=== PATIENT | female | born 1990 | race African-American/Black ===

== ENCOUNTER 2017-01-03 13:07 | Inpatient (IN) | payer BC ==
[2017-01-03 14:01] VITALS: BMI 27.7
--- NOTE | 2017-01-03 14:58 | HP ---
COWS - Scale Resting Pulse: 0= [place] 80 or Below Sweatin=Flushed/Facial Moisture Restless Observation: 1= Difficult to Sit Still Pupil Size: 0= Normal to Room Light Bone or Joint Aches: 2= Severe Diffuse Aches Runny Nose/ Eye Tearin= Runny Nose/Eyes GI Upset > 30mins: 2= Nausea/Diarrhea Tremor Observation: 2= Slight Tremor Visible Yawning Observation: 2= >3x During Session Anxiety or Irritability: 2=Irritable/Anxious Goose Flesh Skin: 3=Piloerection COWS Score: 18 Admission ROS S - HPI Chief Complaint: I am here to detox. Allergies/Adverse Reactions: Allergies Allergy/AdvReac Type Severity Reaction Status Date / Time No Known Allergies Allergy Verified 01/03/17 14:46 History of Present Illness: pt is a 26yr old female with a history of heroin dependence seeking detox for treatment. Exam Limitations: No Limitations - Ebola screening Have you traveled outside of the country in the last 21 days: No Have you had contact with anyone from an Ebola affected area: No Have you been sick,other than usual withdrawal symptoms: No - Review of Systems Constitutional: Chills, Diaphoresis, Night Sweats, Changes in sleep EENT: reports: Tearing Respiratory: reports: No Symptoms reported Cardiac: reports: No Symptoms Reported GI: reports: Poor Appetite, Poor Fluid Intake : reports: No Symptoms Reported, Other (yeast infection) Musculoskeletal: reports: Back Pain Integumentary: reports: Flushing, Sweating Neuro: reports: Headache, Tingling, Tremors Endocrine: reports: Excessive Sweating, Flushing, Intolerance to Cold, Intolerance to Heat Hematology: reports: No Symptoms Reported Psychiatric: reports: Judgement Intact, Mood/Affect Appropiate, Orientated x3, Agitated, Anxious Other Systems: Reviewed and Negative Patient History - Patient Medical History Hx Anemia: No Hx Asthma: No Hx Chronic Obstructive Pulmonary Disease (COPD): No Hx Cancer: No Hx Cardiac Disorders: No Hx Congestive Heart Failure: No Hx Hypertension: No Hx Hypercholesterolemia: No Hx Pacemaker: No HX Cerebrovascular Accident: No Hx Seizures: No Hx Dementia: No Hx Diabetes: No Hx Gastrointestinal Disorders: No Hx Liver Disease: No Hx Genitourinary Disorders: No Hx Sexually Transmitted Disorders: No Hx Renal Disease (ESRD): No Hx Thyroid Disease: No Hx Human Immunodeficiency Virus (HIV): No (negative) Hx Hepatitis C: No (negative) Hx Depression: Yes Hx Suicide Attempt: No Hx Bipolar Disorder: No Hx Schizophrenia: No - Patient Surgical History Past Surgical History: Yes Other Surgical History: TERMINATION OF - PPD History Previous Implant?: Yes Documented Results: Negative w/o proof PPD to be Administered?: Yes - Reproductive History Patient is a Female of Child Bearing Age (11 -55 yrs old): Yes Last Menstrual Period: 12/25/16 Patient : No - Smoking Cessation Smoking history: Current every day smoker Aproximately how many cigarettes per day: 10 Hx Chewing Tobacco Use: No Initiated information on smoking cessation: Yes 'Breaking Loose' booklet given: 01/03/17 - Substance & Tx. History Hx Substance Use: Yes Substance Use Type: Heroin Hx Substance Use Treatment: Yes - Substances Abused Heroin Route: Inhalation Frequency: Daily Amount used: 4-5 bags Age of first use: 19 Date of Last Use: 01/02/17 Family Disease History - Family Disease History Family Disease History: Diabetes: Father (HTN,ALCOHOLIC), Heart Disease: Father , Other: Father, Mother (ALCOHOLIC) Admission Physical Exam S - Vital Signs Vital Signs: Vital Signs - 24 hr 01/03/17 13:56 Temperature 97 F L Pulse Rate 79 Respiratory 20 Rate Blood Pressure 115/72 - Physical General Appearance: Yes: Appropriately Dressed, Moderate Distress, Tremorous, Irritable, Sweating, Anxious HEENTM: Yes: Normal Voice, Nasal Congestion, Rhinorrhea Respiratory: Yes: Lungs Clear, Normal Breath Sounds, No Respiratory Distress Neck: Yes: No masses,lesions,Nodules Breast: Yes: Within Normal Limits Cardiology: Yes: Regular Rhythm, Regular Rate, S1, S2 Abdominal: Yes: Normal Bowel Sounds, Non Tender, Soft Genitourinary: Yes: Within Normal Limits Back: Yes: Normal Inspection Musculoskeletal: Yes: full range of Motion, Back pain Extremities: Yes: Normal Capillary Refill, Normal Inspection, Non-Tender, Tremors Neurological: Yes: Fully Oriented, Alert, Normal Response Integumentary: Yes: Normal Color, Diaphoresis Lymphatic: Yes: Within Normal Limits - Diagnostic (1) Depression Current Visit: No Status: Acute (2) Nicotine dependence Current Visit: Yes Status: Chronic Qualifiers: Nicotine product type: cigarettes Substance use status: uncomplicated Qualified Code(s): F17.210 - Nicotine dependence, cigarettes, uncomplicated (3) Opioid dependence with withdrawal Current Visit: Yes Status: Chronic (4) Cocaine dependence without complication Current Visit: Yes Status: Chronic Cleared for Admission [facility] - Detox or Rehab [facility] Level of Care: Medically Managed Detox Regimen/Protocol: Methadone [facility] Breath Alcohol Content Breath Alcohol Content: 0 Urine Pregancy Test - Result Urine Test Results: Negative- NO Line Present Urine Drug Screen - Results Drug Screen Negative: No Urine Drug Screen Results: TRISTON-Cocaine, OPI-Opiates, MTD-Methadone
[2017-01-03] MEDS ORDERED: MAG HYDROX/AL HYDROX/SIMETH 30 ML UNIT-DOSE CUP PO PRN (15:09)
[2017-01-03] MEDS ORDERED: ACETAMINOPHEN 325 MG TABLET (FP) PO PRN (15:09)
[2017-01-03] MEDS ORDERED: MAGNESIUM HYDROX 2400MG/30ML ORAL SUSPENSION 30 ML CUP PO PRN (15:09)
[2017-01-03] MEDS ORDERED: MAGNESIUM CITRATE 300 ML BOTTLE PO PRN (15:09)
[2017-01-03] MEDS ORDERED: MENTHOL/PHENOL 1 EACH UD MM PRN (15:09)
[2017-01-03] MEDS ORDERED: LOPERAMIDE HCL 2 MG CAPSULE PO PRN (15:09)
[2017-01-03] MEDS ORDERED: guaiFENesin/D-METHORPHAN HB 10 ML UNIT-DOSE CUPS PO PRN (15:09)
[2017-01-03] MEDS ORDERED: P-EPHED 60MG/TRIPROLIDI 2.5MG TABLET PO PRN (15:09)
[2017-01-03] MEDS ORDERED: IBUPROFEN 400 MG TABLET (FP) PO PRN (15:09)
[2017-01-03] MEDS ORDERED: NICOTINE POLACRILEX 4 MG GUM BC PRN (15:09)
[2017-01-03] MEDS ORDERED: diphenhydrAMINE HCL 50 MG CAPSULE PO PRN (15:09)
[2017-01-03] MEDS ORDERED: hydrOXYzine PAMOATE 50 MG CAPSULE (FP) PO PRN (15:09)
[2017-01-03] MEDS ORDERED: FLUCONAZOLE 50 MG TABLET PO ONE ×2 (15:40→17:30)
[2017-01-03] MEDS ORDERED: METHADONE HCL 10 MG TABLET (FOR DETOX USE ONLY) PO ONE ×2 (15:40→23:00)
[2017-01-03] MEDS ORDERED: chlordiazePOXIDE HCL 25 MG CAPSULE ONE (17:00)
--- NOTE | 2017-01-03 17:13 | CONSULT ---
[facility] Psychiatric Consult - Data Date of interview: 01/03/17 Admission source: [facility] Identifying data: Readmission to [facility] for this 26 y/o AA female seeking detox treatment,on ,for heroin and cocaine dependence.Patient is single without children,homeless,unemployed and reportedly deprived of any source of income. Substance Abuse History: - Smoking Cessation. Smoking history: Current every day smoker. Aproximately how many cigarettes per day: 10. Hx Chewing Tobacco Use: No. Initiated information on smoking cessation: Yes. 'Breaking Loose' booklet given: 01/03/17. - Substance & Tx. History. Hx Substance Use: Yes. Substance Use Type: Heroin. Hx Substance Use Treatment: Yes. - Substances Abused. Heroin. Route: Inhalation. Frequency: Daily. Amount used: 4-5 bags. Age of first use: 19. Date of Last Use: 01/02/17. Confirmed by patient. Medical History: No reported medical problems.Good general health. Psychiatric History: Patient admits to one psychiatric hospitalization at [facility] in [facility].Ms Haque behaves heself as a hostile, irritable and unconcerned historian." I dont know,I forgot " is her answer to questions pertinent to current diagnosis,medications or OPD care.No history of suicide attempt reported.Patient states that she last took psychotropic medications " a long time ago." Not interested in any medications other than " a sleeping pill " to address her chronic insomnia.No contact with psychiatrists. Physical/Sexual Abuse/Trauma History: Not discussed. Additional Comment: Urine Drug Screen Results: TRISTON-Cocaine, OPI-Opiates, MTD- Methadone.Noted. Mental Status Exam - Mental Status Exam Alert and Oriented to: Time, Place, Person Cognitive Function: Good Patient Appearance: Well Groomed Mood: Withdrawn, Irritable Affect: Mood Congruent Patient Behavior: Fatigued, Guarded, Cooperative (marginally cooperative) Speech Pattern: Clear Voice Loudness: Normal Thought Process: Goal Oriented Thought Disorder: Not Present Hallucinations: Denies Suicidal Ideation: Denies Homicidal Ideation: Denies Insight/Judgement: Poor Sleep: Poorly, Difficulty falling asleep Appetite: Good Muscle strength/Tone: Normal Gait/Station: Normal Psychiatric Findings - Problem List ([place] 1, 2,3) (1) Cocaine dependence without complication Current Visit: Yes Status: Acute (2) Opioid dependence with withdrawal Current Visit: Yes Status: Acute (3) Nicotine dependence Current Visit: Yes Status: Acute Qualifiers: Nicotine product type: cigarettes Substance use status: uncomplicated Qualified Code(s): F17.210 - Nicotine dependence, cigarettes, uncomplicated (4) Substance induced mood disorder Current Visit: Yes Status: Acute (5) Insomnia Current Visit: Yes Status: Acute - Initial Treatment Plan Initial Treatment Plan: Psychoeducation offered : patient is not receptive at this time.Detoxification initiated.Ambien 5 mg po hs for insomnia.Patient made aware of potential for parasomnias.Agrees with careplan.Observation.
[2017-01-03] MEDS: diazePAM 5 MG TABLET PO PRN ×2 (17:31→22:08)
[2017-01-03 19:13] LABS: URINE APPEARANCE CLEAR; URINE BILIRUBIN NEGATIVE (NEGATIVE); URINE BLOOD NEGATIVE (NEGATIVE); URINE COLOR YELLOW; URINE GLUCOSE (UA) NEGATIVE (NEGATIVE); URINE KETONE TRACE (NEGATIVE); URINE NITRITE NEGATIVE (NEGATIVE); URINE PROTEIN NEGATIVE (NEGATIVE); URINE UROBILINOGEN NEGATIVE E.U./dl (0.2-1.0)
[2017-01-03 19:15] LABS: URINE LEUK ESTERASE TRACE (NEGATIVE)
[2017-01-03 19:16] LABS: URINE BACTERIA RARE /hpf (NONE SEEN); URINE HYALINE CAST 2 /lpf; URINE MUCUS MANY; URINE RBC 2 /hpf (0-3); URINE WBC 5 /hpf (3-5)
[2017-01-03] MEDS ORDERED: ZOLPIDEM TARTRATE 5 MG TABLET PO PRN (22:00)
[2017-01-03] MEDS: THIAMINE HCL 100 MG TABLET (FP) PO SCH (22:06)
[2017-01-04] MEDS ORDERED: METHADONE HCL 10 MG TABLET (FOR DETOX USE ONLY) PO ONE (10:00)
[2017-01-04 10:08] LABS: MCH 25.5 pg (25.7-33.7); MCHC 33.1 g/dl (32.0-36.0); MEAN CELL VOLUME 77.2 fl (80-96); PLATELET COUNT 216 K/MM3 (134-434); WHITE BLOOD COUNT 7.7 K/mm3 (4.0-10.0)
[2017-01-04] MEDS: PRENATAL VITAMINS W/ FOLIC ACID TABLET (FP) PO SCH (10:24)
[2017-01-04 11:03] LABS: ALK PHOS 71 U/L (45-117); ANION GAP 8 (8-16); BILIRUBIN,TOTAL 0.5 mg/dL (0.2-1.0); CALCIUM 8.9 mg/dL (8.5-10.1); CO2 27 mmol/L (21-32); COCKROFT - GAULT 94.605; CREATININE 0.9 mg/dL (0.55-1.02); GLUCOSE,RANDOM 124 mg/dL (74-106); SGOT/AST 13 U/L (15-37); SGPT/ALT 16 U/L (12-78); TOT PROT 7.2 g/dl (6.4-8.2)
[2017-01-04] MEDS ORDERED: ONDANSETRON *ODT* 4 MG TABLET SL ONE ×2 (11:25→14:00)
--- NOTE | 2017-01-04 11:25 | PN ---
BHS COWS - Scale Resting Pulse: 0= [place] 80 or Below Sweatin=Flushed/Facial Moisture Restless Observation: 1= Difficult to Sit Still Pupil Size: 1= Pupils >than Normal Bone or Joint Aches: 2= Severe Diffuse Aches Runny Nose/ Eye Tearin= Nasal Congestion GI Upset > 30mins: 2= Nausea/Diarrhea Tremor Observation of Outstretched Hands: 1= Tremor [place], Not Seen Yawning Observation: 0= None Anxiety or Irritability: 2=Irritable/Anxious Goose Flesh Skin: 0=Smooth Skin COWS Score: 12 BHS Progress Note (SOAP) Subjective: interrrupted sleep, [place] Objective: 01/04/17 11:23 Vital Signs Temperature 98.1 F 01/04/17 09:38 Pulse Rate 71 01/04/17 09:38 Respiratory Rate 16 01/04/17 09:38 Blood Pressure 119/88 01/04/17 09:38 O2 Sat by Pulse Oximetry (%) Vital Signs Temperature 98.1 F 01/04/17 09:38 Pulse Rate 71 01/04/17 09:38 Respiratory Rate 16 01/04/17 09:38 Blood Pressure 119/88 01/04/17 09:38 O2 Sat by Pulse Oximetry (%) Laboratory Tests 01/03/17 01/04/17 01/04/17 17:30 06:00 06:00 WBC 7.7 RBC 4.62 Hgb 11.8 Hct 35.6 MCV 77.2 L MCHC 33.1 RDW 16.0 H Plt Count 216 D MPV 10.0 D Sodium 141 Potassium 4.2 Chloride 106 Carbon Dioxide 27 Anion Gap 8 BUN 12 D Creatinine 0.9 Creat Clearance w eGFR > 60 Random Glucose 124 H D Calcium 8.9 Total Bilirubin 0.5 D AST 13 L D ALT 16 Alkaline Phosphatase 71 Total Protein 7.2 Albumin 4.0 D Urine Color Yellow Urine Appearance Clear Urine pH 5.0 Ur Specific [place] > 1.030 Urine Protein Negative Urine Glucose (UA) Negative Urine Ketones Trace H Urine Blood Negative Urine Nitrite Negative Urine Bilirubin Negative Urine Urobilinogen Negative Ur Leukocyte Esterase Trace H Urine RBC 2 Urine WBC 5 Ur Epithelial Cells Moderate Urine Bacteria Rare Hyaline Casts 2 Urine Mucus Many pt aox3 lying in bed in nad 01/04/17 11:25 Assessment: 01/04/17 11:24 withdrawal sx;s Plan: cont. detox increase fluids zofran prn
[2017-01-04] MEDS: diazePAM 5 MG TABLET PO PRN ×2 (14:48→22:08)
--- NOTE | 2017-01-04 17:38 | EKG ---
Test Reason : Blood Pressure : / mmHG Vent. Rate : 073 BPM Atrial Rate : 073 BPM P-R Int : 172 ms QRS Dur : 076 ms QT Int : 382 ms P-R-T Axes : 027 087 -14 degrees QTc Int : 420 ms NORMAL SINUS RHYTHM NONSPECIFIC T WAVE ABNORMALITY ABNORMAL ECG NO PREVIOUS ECGS AVAILABLE Confirmed by BRYSON GARDNER, NANETTE ([id number]) on 01/04/2017 5:37:59 PM Referred By: Confirmed By:NANETTE MASSEY MD
[2017-01-04] MEDS: THIAMINE HCL 100 MG TABLET (FP) PO SCH (22:06)
[2017-01-05] MEDS ORDERED: METHADONE HCL 5 MG TABLET (FOR DETOX USE ONLY) PO ONE (10:00)
--- NOTE | 2017-01-05 11:10 | PN ---
BHS COWS - Scale Resting Pulse: 1= [place] 81-100 Sweatin=Flushed/Facial Moisture Restless Observation: 1= Difficult to Sit Still Pupil Size: 0= Normal to Room Light Bone or Joint Aches: 2= Severe Diffuse Aches Runny Nose/ Eye Tearin= Runny Nose/Eyes GI Upset > 30mins: 0= None Tremor Observation of Outstretched Hands: 2= Slight Tremor Visible Yawning Observation: 2= >3x During Session Anxiety or Irritability: 0= None Goose Flesh Skin: 0=Smooth Skin COWS Score: 12 S Progress Note (SOAP) Subjective: sleepy sweats chills interrupted sleep Objective: 01/05/17 11:38 Vital Signs Temperature 97.5 F L 01/05/17 10:00 Pulse Rate 72 01/05/17 10:00 Respiratory Rate 20 01/05/17 10:00 Blood Pressure 152/92 01/05/17 10:00 O2 Sat by Pulse Oximetry (%) Laboratory Tests 01/03/17 01/04/17 01/04/17 17:30 06:00 06:00 WBC 7.7 RBC 4.62 Hgb 11.8 Hct 35.6 MCV 77.2 L MCHC 33.1 RDW 16.0 H Plt Count 216 D MPV 10.0 D Sodium 141 Potassium 4.2 Chloride 106 Carbon Dioxide 27 Anion Gap 8 BUN 12 D Creatinine 0.9 Creat Clearance w eGFR > 60 Random Glucose 124 H D Calcium 8.9 Total Bilirubin 0.5 D AST 13 L D ALT 16 Alkaline Phosphatase 71 Total Protein 7.2 Albumin 4.0 D Urine Color Yellow Urine Appearance Clear Urine pH 5.0 Ur Specific [place] > 1.030 Urine Protein Negative Urine Glucose (UA) Negative Urine Ketones Trace H Urine Blood Negative Urine Nitrite Negative Urine Bilirubin Negative Urine Urobilinogen Negative Ur Leukocyte Esterase Trace H Urine RBC 2 Urine WBC 5 Ur Epithelial Cells Moderate Urine Bacteria Rare Hyaline Casts 2 Urine Mucus Many RPR Titer 01/04/17 06:00 WBC RBC Hgb Hct MCV MCHC RDW Plt Count MPV Sodium Potassium Chloride Carbon Dioxide Anion Gap BUN Creatinine Creat Clearance w eGFR Random Glucose Calcium Total Bilirubin AST ALT Alkaline Phosphatase Total Protein Albumin Urine Color Urine Appearance Urine pH Ur Specific [place] Urine Protein Urine Glucose (UA) Urine Ketones Urine Blood Urine Nitrite Urine Bilirubin Urine Urobilinogen Ur Leukocyte Esterase Urine RBC Urine WBC Ur Epithelial Cells Urine Bacteria Hyaline Casts Urine Mucus RPR Titer Nonreactive awake/alert ambulating no acute distress Assessment: 01/05/17 11:38 withdrawal sx Plan: continue detox increase fluids
[2017-01-05] MEDS: diazePAM 5 MG TABLET PO PRN ×3 (11:20→22:16)
[2017-01-05] MEDS: PRENATAL VITAMINS W/ FOLIC ACID TABLET (FP) PO SCH (11:20)
[2017-01-05] MEDS: THIAMINE HCL 100 MG TABLET (FP) PO SCH (22:10)
[2017-01-05 22:26] VITALS: TEMP 97.9
[2017-01-06] MEDS: diazePAM 5 MG TABLET PO PRN ×2 (03:25→10:30)
[2017-01-06] MEDS ORDERED: METHADONE HCL 5 MG TABLET (FOR DETOX USE ONLY) PO ONE (10:00)
[2017-01-06] MEDS: PRENATAL VITAMINS W/ FOLIC ACID TABLET (FP) PO SCH (10:30)
--- NOTE | 2017-01-06 14:07 | PN ---
BHS Progress Note (SOAP) Subjective: Sleep interruption, anxiety sweats and shakes Objective: 01/06/17 14:06 Vital Signs 01/06/17 10:51 Temperature 97.9 F Pulse Rate 74 Respiratory 16 Rate Blood Pressure 117/76 Laboratory Last Values WBC 7.7 K/mm3 (4.0-10.0) 01/04/17 06:00 RBC 4.62 M/mm3 (3.60-5.2) 01/04/17 06:00 Hgb 11.8 GM/dL (10.7-15.3) 01/04/17 06:00 Hct 35.6 % (32.4-45.2) 01/04/17 06:00 MCV 77.2 fl (80-96) L 01/04/17 06:00 MCHC 33.1 g/dl (32.0-36.0) 01/04/17 06:00 RDW 16.0 % (11.6-15.6) H 01/04/17 06:00 Plt Count 216 K/MM3 (134-434) D 01/04/17 06:00 MPV 10.0 fl (7.5-11.1) D 01/04/17 06:00 Sodium 141 mmol/L (136-145) 01/04/17 06:00 Potassium 4.2 mmol/L (3.5-5.1) 01/04/17 06:00 Chloride 106 mmol/L (98-107) 01/04/17 06:00 Carbon Dioxide 27 mmol/L (21-32) 01/04/17 06:00 Anion Gap 8 (8-16) 01/04/17 06:00 BUN 12 mg/dL (7-18) D 01/04/17 06:00 Creatinine 0.9 mg/dL (0.55-1.02) 01/04/17 06:00 Creat Clearance w eGFR > 60 (>60) 01/04/17 06:00 Random Glucose 124 mg/dL (74-106) H D 01/04/17 06:00 Calcium 8.9 mg/dL (8.5-10.1) 01/04/17 06:00 Total Bilirubin 0.5 mg/dL (0.2-1.0) D 01/04/17 06:00 AST 13 U/L (15-37) L D 01/04/17 06:00 ALT 16 U/L (12-78) 01/04/17 06:00 Alkaline Phosphatase 71 U/L (45-117) 01/04/17 06:00 Total Protein 7.2 g/dl (6.4-8.2) 01/04/17 06:00 Albumin 4.0 g/dl (3.4-5.0) D 01/04/17 06:00 Urine Color Yellow 01/03/17 17:30 Urine Appearance Clear 01/03/17 17:30 Urine pH 5.0 (5.0-8.0) 01/03/17 17:30 Ur Specific [place] > 1.030 (1.001-1.035) 01/03/17 17:30 Urine Protein Negative (NEGATIVE) 01/03/17 17:30 Urine Glucose (UA) Negative (NEGATIVE) 01/03/17 17:30 Urine Ketones Trace (NEGATIVE) H 01/03/17 17:30 Urine Blood Negative (NEGATIVE) 01/03/17 17:30 Urine Nitrite Negative (NEGATIVE) 01/03/17 17:30 Urine Bilirubin Negative (NEGATIVE) 01/03/17 17:30 Urine Urobilinogen Negative E.U./dl (0.2-1.0) 01/03/17 17:30 Ur Leukocyte Esterase Trace (NEGATIVE) H 01/03/17 17:30 Urine RBC 2 /hpf (0-3) 01/03/17 17:30 Urine WBC 5 /hpf (3-5) 01/03/17 17:30 Ur Epithelial Cells Moderate /hpf (FEW) 01/03/17 17:30 Urine Bacteria Rare /hpf (NONE SEEN) 01/03/17 17:30 Hyaline Casts 2 /lpf 01/03/17 17:30 Urine Mucus Many 01/03/17 17:30 RPR Titer Nonreactive (NONREACTIVE) 01/04/17 06:00 Labs noted Assessment: 01/06/17 14:06 withdrawal sx Plan: continue detox
[2017-01-06 15:25] VITALS: BP 117/72; PULSE 94
--- NOTE | 2017-01-06 19:20 | DS ---
[facility] Detox Discharge Summary Admission Date: 01/03/17 Discharge Date: 01/06/17 - Physical Exam Results Vital Signs: Vital Signs Temperature 97.9 F 01/06/17 15:24 Pulse Rate 94 H 01/06/17 15:24 Respiratory Rate 18 01/06/17 15:24 Blood Pressure 117/72 01/06/17 15:24 O2 Sat by Pulse Oximetry (%) Pertinent Admission Physical Exam Findings: withdrawal sx Laboratory Last Values WBC 7.7 K/mm3 (4.0-10.0) 01/04/17 06:00 RBC 4.62 M/mm3 (3.60-5.2) 01/04/17 06:00 Hgb 11.8 GM/dL (10.7-15.3) 01/04/17 06:00 Hct 35.6 % (32.4-45.2) 01/04/17 06:00 MCV 77.2 fl (80-96) L 01/04/17 06:00 MCHC 33.1 g/dl (32.0-36.0) 01/04/17 06:00 RDW 16.0 % (11.6-15.6) H 01/04/17 06:00 Plt Count 216 K/MM3 (134-434) D 01/04/17 06:00 MPV 10.0 fl (7.5-11.1) D 01/04/17 06:00 Sodium 141 mmol/L (136-145) 01/04/17 06:00 Potassium 4.2 mmol/L (3.5-5.1) 01/04/17 06:00 Chloride 106 mmol/L (98-107) 01/04/17 06:00 Carbon Dioxide 27 mmol/L (21-32) 01/04/17 06:00 Anion Gap 8 (8-16) 01/04/17 06:00 BUN 12 mg/dL (7-18) D 01/04/17 06:00 Creatinine 0.9 mg/dL (0.55-1.02) 01/04/17 06:00 Creat Clearance w eGFR > 60 (>60) 01/04/17 06:00 Random Glucose 124 mg/dL (74-106) H D 01/04/17 06:00 Calcium 8.9 mg/dL (8.5-10.1) 01/04/17 06:00 Total Bilirubin 0.5 mg/dL (0.2-1.0) D 01/04/17 06:00 AST 13 U/L (15-37) L D 01/04/17 06:00 ALT 16 U/L (12-78) 01/04/17 06:00 Alkaline Phosphatase 71 U/L (45-117) 01/04/17 06:00 Total Protein 7.2 g/dl (6.4-8.2) 01/04/17 06:00 Albumin 4.0 g/dl (3.4-5.0) D 01/04/17 06:00 Urine Color Yellow 01/03/17 17:30 Urine Appearance Clear 01/03/17 17:30 Urine pH 5.0 (5.0-8.0) 01/03/17 17:30 Ur Specific [place] > 1.030 (1.001-1.035) 01/03/17 17:30 Urine Protein Negative (NEGATIVE) 01/03/17 17:30 Urine Glucose (UA) Negative (NEGATIVE) 01/03/17 17:30 Urine Ketones Trace (NEGATIVE) H 01/03/17 17:30 Urine Blood Negative (NEGATIVE) 01/03/17 17:30 Urine Nitrite Negative (NEGATIVE) 01/03/17 17:30 Urine Bilirubin Negative (NEGATIVE) 01/03/17 17:30 Urine Urobilinogen Negative E.U./dl (0.2-1.0) 01/03/17 17:30 Ur Leukocyte Esterase Trace (NEGATIVE) H 01/03/17 17:30 Urine RBC 2 /hpf (0-3) 01/03/17 17:30 Urine WBC 5 /hpf (3-5) 01/03/17 17:30 Ur Epithelial Cells Moderate /hpf (FEW) 01/03/17 17:30 Urine Bacteria Rare /hpf (NONE SEEN) 01/03/17 17:30 Hyaline Casts 2 /lpf 01/03/17 17:30 Urine Mucus Many 01/03/17 17:30 RPR Titer Nonreactive (NONREACTIVE) 01/04/17 06:00 - Medication Discharge Medications: Ambulatory Orders NK [No Known Home Medication] 10/16/14 - Diagnosis (1) Cocaine dependence Status: Acute Qualifiers: Substance use status: uncomplicated Qualified Code(s): F14.20 - Cocaine dependence, uncomplicated (2) Nicotine dependence Status: Acute Qualifiers: Nicotine product type: cigarettes Substance use status: uncomplicated Qualified Code(s): F17.210 - Nicotine dependence, cigarettes, uncomplicated (3) Opioid dependence with withdrawal Status: Acute (4) Substance induced mood disorder Status: Acute - AMA Did Patient Leave Against Medical Advice: Yes
[2017-01-07] MEDS ORDERED: METHADONE HCL 10 MG TABLET (FOR DETOX USE ONLY) PO ONE (10:00)
[2017-01-08] MEDS ORDERED: METHADONE HCL 5 MG TABLET (FOR DETOX USE ONLY) PO ONE (06:00)
== END 2017-01-06 17:45 | disposition left against medical advice (07) | DRG 770 ==
LOC: YASAS 13:07 → Y6N 15:07
PROVIDERS: ADMIT Internal Medicine Addiction Medicine; ATTEND Internal Medicine Addiction Medicine
PROC: HZ2ZZZZ Detoxification Services for Substance Abuse Treatment (ICD-10-PCS; principal; 2017-01-06)
DX: F11.23 Opioid dependence with withdrawal (principal); F14.20 Cocaine dependence, uncomplicated; F17.210 Nicotine dependence, cigarettes, uncomplicated; F19.24 Other psychoactive substance dependence with psychoactive substance-induced mood disorder; F32.9 Major depressive disorder, single episode, unspecified; G47.00 Insomnia, unspecified
CPT/HCPCS: 36415; 80053; 81003; 81015; 85027; 86593; 93005; 93010

== ENCOUNTER 2018-12-25 14:29 | Inpatient (IN) | payer OTHER ==
[2018-12-25 17:33] VITALS: BMI 19.5
[2018-12-25] MEDS ORDERED: NICOTINE POLACRILEX 4 MG GUM BC PRN (19:53)
[2018-12-25] MEDS ORDERED: MAG HYDROX/AL HYDROX/SIMETH 30 ML UNIT-DOSE CUP PO PRN (19:53)
[2018-12-25] MEDS ORDERED: guaiFENesin 200 MG/10 ML 10 ML UNIT-DOSE CUPS PO PRN (19:53)
[2018-12-25] MEDS ORDERED: MAGNESIUM CITRATE 300 ML BOTTLE PO PRN (19:53)
[2018-12-25] MEDS ORDERED: IBUPROFEN 400 MG TABLET (FP) PO PRN (19:53)
[2018-12-25] MEDS ORDERED: MAGNESIUM HYDROX 2400MG/30ML ORAL SUSPENSION 30 ML CUP PO PRN (19:53)
[2018-12-25] MEDS ORDERED: LOPERAMIDE HCL 2 MG CAPSULE PO PRN (19:53)
[2018-12-25] MEDS ORDERED: MENTHOL/PHENOL 1 EACH UD MM PRN (19:53)
[2018-12-25] MEDS ORDERED: P-EPHED 60MG/TRIPROLIDI 2.5MG TABLET PO PRN (19:53)
--- NOTE | 2018-12-25 19:53 | HP ---
CIWA Score - Admission Criteria [facility] Guidelines: Admission for Medically Managed Detox: Requires at least one of the followin. CIWA greater than 12 2. Seizures within the past 24 hours 3. Delirium tremens within the past 24 hours 4. Hallucinations within the past 24 hours 5. Acute intervention needed for co occurring medical disorder 6. Acute intervention needed for co occurring psychiatric disorder 7. Severe withdrawal that cannot be handled at a lower level of care (continued vomiting, continued diarrhea, abnormal vital signs) requiring intravenous medication and/or fluids 8. Admission ROS BHS - HPI Chief Complaint: here for rehab from heroin, alcohol. Says wants to be "clean period". Pt states was recently in detox at [facility], discharged 2 days ago. Says has not been drinking (TONG-0) since discharge. In a methadone program at [facility]- 60mg. Last drink about 2 weeks ago Last crack cocaine use> 2 weeks Last heroin use- 2 weeks ago,. DUR- no meds No medical problems, no meds Allergies/Adverse Reactions: Allergies Allergy/AdvReac Type Severity Reaction Status Date / Time No Known Allergies Allergy Verified 12/25/18 17:27 Exam Limitations: No Limitations - Ebola screening Have you traveled outside of the country in the last 21 days: No Have you had contact with anyone from an Ebola affected area: No Do you have a fever: No - Review of Systems Constitutional: No Symptoms Reported EENT: reports: No Symptoms Reported Patient History - Patient Medical History Hx Anemia: No Hx Asthma: No Hx Chronic Obstructive Pulmonary Disease (COPD): No Hx Cancer: No Hx Cardiac Disorders: No Hx Congestive Heart Failure: No Hx Hypertension: No Hx Hypercholesterolemia: No Hx Pacemaker: No HX Cerebrovascular Accident: No Hx Seizures: No Hx Dementia: No Hx Diabetes: No Hx Gastrointestinal Disorders: No Hx Liver Disease: No Hx Genitourinary Disorders: No Hx Sexually Transmitted Disorders: No Hx Renal Disease (ESRD): No Hx Thyroid Disease: No Hx Human Immunodeficiency Virus (HIV): No (negative) Hx Hepatitis C: No (negative) Hx Depression: Yes Hx Suicide Attempt: No Hx Bipolar Disorder: No Hx Schizophrenia: No - Patient Surgical History Past Surgical History: No Hx Neurologic Surgery: No Hx Cataract Extraction: No Hx Cardiac Surgery: No Hx Lung Surgery: No Hx Breast Surgery: No Hx Breast Biopsy: No Hx Abdominal Surgery: No Hx Appendectomy: No Hx Cholecystectomy: No Hx Genitourinary Surgery: No Hx Section: No Hx Orthopedic Surgery: No Other Surgical History: TERMINATION OF Anesthesia Reaction: No - PPD History Documented Results: Negative w/o proof Date: 01/05/17 Results: 0 MM - Reproductive History Patient is a Female of Child Bearing Age (11 -55 yrs old): Yes Last Menstrual Period: 12/25/16 Patient : No - Smoking Cessation Smoking history: Current every day smoker Aproximately how many cigarettes per day: 10 Hx Chewing Tobacco Use: No Initiated information on smoking cessation: Yes 'Breaking Loose' booklet given: 12/25/18 - Substance & Tx. History Hx Alcohol Use: Yes Hx Substance Use: Yes Substance Use Type: Alcohol, Cocaine, Heroin, Prescribed Hx Substance Use Treatment: Yes - Substances abused Heroin Other (specify): SNIFF Frequency: Daily Amount used: 10 BAGS Age of first use: 15 Date of last use: 12/24/18 Cocaine Substance route: Smoking Frequency: Daily Amount used: $20 Age of first use: 16 Date of last use: 12/25/18 Alcohol Substance route: Oral Frequency: Daily Amount used: 1 [place] Age of first use: 16 Date of last use: 12/24/18 Family Disease History - Family Disease History Family Disease History: Diabetes: Father (HTN,ALCOHOLIC), Heart Disease: Father , Other: Father, Mother (ALCOHOLIC) Admission Physical Exam BHS - Vital Signs Vital Signs: Vital Signs - 24 hr 12/25/18 17:28 Temperature 97.7 F Pulse Rate 89 Respiratory 18 Rate Blood Pressure 99/67 Breathalyzer - Breathalyzer Breathalyzer: 0 POC Urine test - Test device test lot number: [id number] Expiration date: 05/03/20 - Control test control: Yes - Result Urine Test Results: Negative - NO line present Urine Drug Screen - Test Device Lot number: [id number] Expiration date: 08/02/20 - Control Is test valid?: Yes - Results Drug screen NEGATIVE: No Urine drug screen results: TRISTON-Cocaine, MOP-Opiates, MTD-Methadone, BZO- Benzodiazepines Inpatient Rehab Admission - Rehab Decision to Admit Inpatient rehab admission?: Yes - Initial Determination Are CD services needed?: Yes Free of communicable disease: Yes Not in need of hospitalization: Yes - Rehab Admission Criteria Previous failed treatment: Yes Poor recovery environment: Yes Comorbidities: Yes Lacks judgement: Yes Patient is meeting Inpatient Rehab admission criteria:: Yes (finished detox, on MAT)
[2018-12-25] MEDS ORDERED: TUBERCULIN PPD 5 TU/0.1ML VIAL ID ONE (22:33)
[2018-12-25] MEDS: THIAMINE HCL 100 MG TABLET (FP) PO SCH (22:39)
[2018-12-25] MEDS: ACETAMINOPHEN 325 MG TABLET (FP) PO PRN (22:42)
[2018-12-26] MEDS: MELATONIN 5 MG TABLETS PO PRN ×2 (00:33→21:32)
[2018-12-26] MEDS: PRENATAL VITAMINS W/ FOLIC ACID TABLET (FP) PO SCH (09:39)
[2018-12-26 10:19] LABS: HEMATOCRIT 34.4 % (32.4-45.2); HEMOGLOBIN 11.5 GM/dL (10.7-15.3); MCH 26.3 pg (25.7-33.7); MCHC 33.5 g/dl (32.0-36.0); MEAN CELL VOLUME 78.5 fl (80-96); MEAN PLT VOLUME 9.1 fl (7.5-11.1); PLATELET COUNT 298 K/MM3 (134-434); RBC 4.39 M/mm3 (3.60-5.2); RDW 15.8 % (11.6-15.6); WHITE BLOOD COUNT 6.6 K/mm3 (4.0-10.0)
[2018-12-26 10:21] LABS: ALBUMIN 3.6 g/dl (3.4-5.0); ALK PHOS 73 U/L (45-117); ANION GAP 5 MMOL/L (8-16); BILIRUBIN,TOTAL 0.2 mg/dL (0.2-1); BLOOD UREA NITROGEN 11 mg/dL (7-18); CHLORIDE 106 mmol/L (98-107); CO2 30 mmol/L (21-32); CREATININE 0.9 mg/dL (0.55-1.3); GLUCOSE,RANDOM 111 mg/dL (74-106); POTASSIUM 4.4 mmol/L (3.5-5.1); SGOT/AST 15 U/L (15-37); SGPT/ALT 13 U/L (13-61); SODIUM 141 mmol/L (136-145); TOT PROT 6.6 g/dl (6.4-8.2)
[2018-12-26] MEDS ORDERED: METHADONE HCL 10 MG TABLET PO ONE (16:32)
[2018-12-26] MEDS ORDERED: METHADONE 40 MG, METHADONE 20 MG PO ONE (17:00)
[2018-12-26] MEDS ORDERED: METHADONE HCL 40 MG DISPERSABLE TABLET ONE (17:02)
[2018-12-26] MEDS ORDERED: METHADONE HCL 10 MG TABLET ONE (17:02)
[2018-12-26] MEDS: THIAMINE HCL 100 MG TABLET (FP) PO SCH (21:31)
[2018-12-26] MEDS: ACETAMINOPHEN 325 MG TABLET (FP) PO PRN (21:32)
[2018-12-26] MEDS: hydrOXYzine PAMOATE 25 MG CAPSULE (FP) PO PRN (23:08)
[2018-12-27] MEDS ORDERED: METHADONE HCL 10 MG TABLET ONE (05:50)
[2018-12-27] MEDS ORDERED: METHADONE HCL 40 MG DISPERSABLE TABLET ONE (05:50)
[2018-12-27] MEDS ORDERED: METHADONE HCL 10 MG TABLET PO SCH (06:00)
[2018-12-27] MEDS: METHADONE 40 MG, METHADONE 20 MG PO SCH (06:49)
[2018-12-27] MEDS: PRENATAL VITAMINS W/ FOLIC ACID TABLET (FP) PO SCH (10:06)
[2018-12-27] MEDS: ACETAMINOPHEN 325 MG TABLET (FP) PO PRN ×2 (10:08→21:59)
[2018-12-27] MEDS: hydrOXYzine PAMOATE 25 MG CAPSULE (FP) PO PRN ×2 (10:08→21:59)
[2018-12-27 16:49] LABS: EPI CELLS >36 /HPF (0-5/HPF); PH,URINE 7.5 (5.0-8.0); URINE APPEARANCE TURBID; URINE BACTERIA 369.8 /hpf (NEGATIVE); URINE BILIRUBIN NEGATIVE (NEGATIVE); URINE CASTS 11 /lpf (0-8); URINE COLOR YELLOW; URINE GLUCOSE (UA) NEGATIVE (NEGATIVE); URINE KETONE NEGATIVE (NEGATIVE); URINE LEUK ESTERASE 3+ (NEGATIVE); URINE NITRITE NEGATIVE (NEGATIVE); URINE PROTEIN TRACE (NEGATIVE); URINE UROBILINOGEN 0.2 mg/dL (0.2-1.0); URINE WBC 80 /hpf (0-5)
[2018-12-27 17:08] LABS: URINE RBC 20 /hpf (0-4)
[2018-12-27] MEDS: MELATONIN 5 MG TABLETS PO PRN (21:59)
[2018-12-27] MEDS: THIAMINE HCL 100 MG TABLET (FP) PO SCH (21:59)
[2018-12-28] MEDS ORDERED: METHADONE HCL 10 MG TABLET ONE (05:47)
[2018-12-28] MEDS ORDERED: METHADONE HCL 40 MG DISPERSABLE TABLET ONE (05:48)
[2018-12-28] MEDS: METHADONE 40 MG, METHADONE 20 MG PO SCH (07:25)
[2018-12-28] MEDS: PRENATAL VITAMINS W/ FOLIC ACID TABLET (FP) PO SCH (10:45)
[2018-12-28] MEDS: ACETAMINOPHEN 325 MG TABLET (FP) PO PRN (13:52)
[2018-12-28] MEDS: hydrOXYzine PAMOATE 25 MG CAPSULE (FP) PO PRN ×2 (13:52→21:23)
[2018-12-28] MEDS: MELATONIN 5 MG TABLETS PO PRN (21:22)
[2018-12-28] MEDS: THIAMINE HCL 100 MG TABLET (FP) PO SCH (21:22)
[2018-12-29] MEDS ORDERED: METHADONE HCL 40 MG DISPERSABLE TABLET ONE (05:54)
[2018-12-29] MEDS ORDERED: METHADONE HCL 10 MG TABLET ONE (05:54)
[2018-12-29] MEDS: METHADONE 40 MG, METHADONE 20 MG PO SCH (07:52)
[2018-12-29] MEDS: PRENATAL VITAMINS W/ FOLIC ACID TABLET (FP) PO SCH (10:47)
[2018-12-29] MEDS: ACETAMINOPHEN 325 MG TABLET (FP) PO PRN ×2 (10:47→21:48)
[2018-12-29] MEDS: THIAMINE HCL 100 MG TABLET (FP) PO SCH (21:48)
[2018-12-29] MEDS: MELATONIN 5 MG TABLETS PO PRN (21:50)
[2018-12-29] MEDS: hydrOXYzine PAMOATE 25 MG CAPSULE (FP) PO PRN (21:50)
[2018-12-30] MEDS ORDERED: METHADONE HCL 10 MG TABLET ONE (05:57)
[2018-12-30] MEDS ORDERED: METHADONE HCL 40 MG DISPERSABLE TABLET ONE (05:58)
[2018-12-30] MEDS: METHADONE 40 MG, METHADONE 20 MG PO SCH (07:30)
[2018-12-30] MEDS: ACETAMINOPHEN 325 MG TABLET (FP) PO PRN (08:16)
[2018-12-30] MEDS: PRENATAL VITAMINS W/ FOLIC ACID TABLET (FP) PO SCH (09:58)
[2018-12-30] MEDS: hydrOXYzine PAMOATE 25 MG CAPSULE (FP) PO PRN (09:59)
--- NOTE | 2018-12-30 10:53 | PN ---
[facility] Progress Note Note: LAB REVIEWED: Laboratory Tests 12/25/18 12/26/18 12/26/18 15:15 08:30 08:30 WBC 6.6 RBC 4.39 Hgb 11.5 Hct 34.4 MCV 78.5 L MCH 26.3 MCHC 33.5 RDW 15.8 H Plt Count 298 D MPV 9.1 Sodium 141 Potassium 4.4 Chloride 106 Carbon Dioxide 30 Anion Gap 5 L BUN 11 Creatinine 0.9 Creat Clearance w eGFR 73.52 Random Glucose 111 H Calcium 9.0 Total Bilirubin 0.2 AST 15 ALT 13 Alkaline Phosphatase 73 Total Protein 6.6 Albumin 3.6 Urine Color Urine Appearance Urine pH Ur Specific Sledge Urine Protein Urine Glucose (UA) Urine Ketones Urine Blood Urine Nitrite Urine Bilirubin Urine Urobilinogen Ur Leukocyte Esterase Urine WBC (Auto) Urine RBC (Auto) Urine Casts (Auto) U Epithel Cells (Auto) Urine Bacteria (Auto) POC Urine HCG, Qual Negative RPR Titer 12/26/18 12/27/18 08:30 15:30 WBC RBC Hgb Hct MCV MCH MCHC RDW Plt Count MPV Sodium Potassium Chloride Carbon Dioxide Anion Gap BUN Creatinine Creat Clearance w eGFR Random Glucose Calcium Total Bilirubin AST ALT Alkaline Phosphatase Total Protein Albumin Urine Color Yellow Urine Appearance Turbid Urine pH 7.5 D Ur Specific [place] 1.017 Urine Protein Trace Urine Glucose (UA) Negative Urine Ketones Negative Urine Blood 2+ H Urine Nitrite Negative Urine Bilirubin Negative Urine Urobilinogen 0.2 Ur Leukocyte Esterase 3+ H Urine WBC (Auto) 80 Urine RBC (Auto) 20 Urine Casts (Auto) 11 U Epithel Cells (Auto) >36 Urine Bacteria (Auto) 369.8 POC Urine HCG, Qual RPR Titer Nonreactive LABS NOTED Vital Signs 12/30/18 12/30/18 03:30 07:18 Temperature 97.4 F L Pulse Rate 74 Respiratory 18 18 Rate Blood Pressure 116/76 A:R/O UTI PLAN:REPEAT UA; UC TODAY
[2018-12-30] MEDS: THIAMINE HCL 100 MG TABLET (FP) PO SCH (22:40)
[2018-12-30] MEDS ORDERED: PT OWN MED DRAWER 7, Y5N ONE (23:25)
[2018-12-31] MEDS ORDERED: METHADONE HCL 40 MG DISPERSABLE TABLET ONE (04:25)
[2018-12-31] MEDS ORDERED: METHADONE HCL 10 MG TABLET ONE (04:25)
[2018-12-31] MEDS: METHADONE 40 MG, METHADONE 20 MG PO SCH (07:59)
[2018-12-31] MEDS: hydrOXYzine PAMOATE 25 MG CAPSULE (FP) PO PRN ×2 (10:16→21:48)
[2018-12-31] MEDS: PRENATAL VITAMINS W/ FOLIC ACID TABLET (FP) PO SCH (10:16)
[2018-12-31] MEDS: ACETAMINOPHEN 325 MG TABLET (FP) PO PRN ×2 (10:16→21:49)
--- NOTE | 2018-12-31 10:20 | CONSULT ---
[facility] Psychiatric Consult - Data Date of interview: 12/31/18 Admission source: [facility] Identifying data: Patient is a 28 year old single female, without children, unemployed, homeless (denies receiving financial assistance). This is patient's first admission to rehab at [facility]. Patient admitted to for alcohol and cocaine dependence. Substance Abuse History: - Smoking Cessation. Smoking history: Current every day smoker. Aproximately how many cigarettes per day: 10. Hx Chewing Tobacco Use: No. Initiated information on smoking cessation: Yes. 'Breaking Loose' booklet given: 12/25/18. - Substance & Tx. History. Hx Alcohol Use: Yes. Hx Substance Use: Yes. Substance Use Type: Alcohol, Cocaine, Heroin, Prescribed. Hx Substance Use Treatment: Yes. - Substances abused. Heroin. Other ( specify): SNIFF. Frequency: Daily. Amount used: 10 BAGS. Age of first use: 15. Date of last use: 12/24/18. Cocaine. Substance route: Smoking. Frequency: Daily. Amount used: $20. Age of first use: 16. Date of last use: 12/25/18. Alcohol. Substance route: Oral. Frequency: Daily. Amount used: 1 [place]. Age of first use: 16. Date of last use: 12/24/18 Medical History: Termination of Psychiatric History: Patient's first psychiatric contact was as a child but is unsure as to why she saw a psychiatrist. Patient reports h/o one psychiatric hospitalization last year in which she was taken a psychiatric emergency room and admitted to the psychiatric unit for one day (questionable historian). As an adult she has received psychiatric care when admitted to detox/rehab settings. States she was admitted to [facility] in December for detox and was prescribed medications. External records reviewed. Prescripition of risperdal 0.5mg noted for 12/06/18 (30 day supply). Patient reports h/o irritable and agitated behavior. Ms. Haque denies h/o auditory and visual hallucinations. Ms. Haque is currently on methadone maintenance of 60mg daily at the [facility] clinic. At present she reports stable mood. Physical/Sexual Abuse/Trauma History: denies. Mental Status Exam - Mental Status Exam Alert and Oriented to: Time, Place, Person Cognitive Function: Good Patient Appearance: Well Groomed Mood: Withdrawn Affect: Mood Congruent, Flat Patient Behavior: Cooperative Speech Pattern: Appropriate Voice Loudness: Normal Thought Process: Goal Oriented Thought Disorder: Not Present Hallucinations: Denies Suicidal Ideation: Denies Homicidal Ideation: Denies Insight/Judgement: Poor Sleep: Fair Appetite: Fair Muscle strength/Tone: Normal Gait/Station: Normal Psychiatric Findings - Problem List ([place] 1, 2,3) (1) Methadone maintenance therapy patient Current Visit: Yes Status: Chronic (2) Cocaine dependence Current Visit: Yes Status: Acute Qualifiers: Substance use status: uncomplicated Qualified Code(s): F14.20 - Cocaine dependence, uncomplicated (3) Substance induced mood disorder Current Visit: Yes Status: Acute (4) Alcohol dependence Current Visit: Yes Status: Acute - Initial Treatment Plan Initial Treatment Plan: Psychoeducation provided. Rehab in progress. Will order Risperdal 0.5mg BID. Benefits and side effects discussed. Verbal consent given.
[2018-12-31] MEDS: risperiDONE 0.5 MG TABLET (FP) PO SCH ×2 (11:25→21:47)
[2018-12-31] MEDS: MELATONIN 5 MG TABLETS PO PRN (21:48)
[2018-12-31] MEDS: THIAMINE HCL 100 MG TABLET (FP) PO SCH (21:50)
[2018-12-31 23:16] LABS: EPI CELLS 8.4 /HPF (0-5/HPF); URINE APPEARANCE CLOUDY; URINE BACTERIA 49.1 /hpf (NEGATIVE); URINE BILIRUBIN NEGATIVE (NEGATIVE); URINE CASTS 12 /lpf (0-8); URINE COLOR YELLOW; URINE GLUCOSE (UA) NEGATIVE (NEGATIVE); URINE KETONE NEGATIVE (NEGATIVE); URINE LEUK ESTERASE 2+ (NEGATIVE); URINE NITRITE NEGATIVE (NEGATIVE); URINE PROTEIN NEGATIVE (NEGATIVE); URINE RBC 2 /hpf (0-4); URINE UROBILINOGEN 0.2 mg/dL (0.2-1.0); URINE WBC 27 /hpf (0-5)
[2019-01-01] MEDS ORDERED: METHADONE HCL 10 MG TABLET ONE (03:09)
[2019-01-01] MEDS ORDERED: METHADONE HCL 40 MG DISPERSABLE TABLET ONE (03:09)
[2019-01-01] MEDS: METHADONE 40 MG, METHADONE 20 MG PO SCH (06:48)
[2019-01-01] MEDS: PRENATAL VITAMINS W/ FOLIC ACID TABLET (FP) PO SCH (09:45)
[2019-01-01] MEDS: risperiDONE 0.5 MG TABLET (FP) PO SCH ×2 (09:45→23:16)
[2019-01-01] MEDS: ACETAMINOPHEN 325 MG TABLET (FP) PO PRN (09:46)
[2019-01-01] MEDS: THIAMINE HCL 100 MG TABLET (FP) PO SCH (23:17)
[2019-01-02] MEDS ORDERED: METHADONE HCL 10 MG TABLET ONE (03:10)
[2019-01-02] MEDS ORDERED: METHADONE HCL 40 MG DISPERSABLE TABLET ONE (03:11)
[2019-01-02] MEDS: METHADONE 40 MG, METHADONE 20 MG PO SCH (06:59)
[2019-01-02] MEDS: PRENATAL VITAMINS W/ FOLIC ACID TABLET (FP) PO SCH (09:47)
[2019-01-02] MEDS: risperiDONE 0.5 MG TABLET (FP) PO SCH ×2 (09:48→22:24)
[2019-01-02] MEDS: ACETAMINOPHEN 325 MG TABLET (FP) PO PRN (09:49)
[2019-01-02] MEDS: THIAMINE HCL 100 MG TABLET (FP) PO SCH (22:24)
[2019-01-03] MEDS ORDERED: METHADONE HCL 10 MG TABLET ONE (03:20)
[2019-01-03] MEDS ORDERED: METHADONE HCL 40 MG DISPERSABLE TABLET ONE (03:20)
[2019-01-03] MEDS: METHADONE 40 MG, METHADONE 20 MG PO SCH (06:32)
[2019-01-03] MEDS: risperiDONE 0.5 MG TABLET (FP) PO SCH ×2 (10:02→22:56)
[2019-01-03] MEDS: ACETAMINOPHEN 325 MG TABLET (FP) PO PRN (10:02)
[2019-01-03] MEDS: PRENATAL VITAMINS W/ FOLIC ACID TABLET (FP) PO SCH (10:02)
[2019-01-03] MEDS: THIAMINE HCL 100 MG TABLET (FP) PO SCH (22:56)
[2019-01-04] MEDS ORDERED: METHADONE HCL 10 MG TABLET ONE (06:45)
[2019-01-04] MEDS ORDERED: METHADONE HCL 40 MG DISPERSABLE TABLET ONE (06:45)
[2019-01-04] MEDS: METHADONE 40 MG, METHADONE 20 MG PO SCH (06:45)
[2019-01-04] MEDS: risperiDONE 0.5 MG TABLET (FP) PO SCH ×2 (10:08→23:36)
[2019-01-04] MEDS: PRENATAL VITAMINS W/ FOLIC ACID TABLET (FP) PO SCH (10:08)
[2019-01-04] MEDS: hydrOXYzine PAMOATE 25 MG CAPSULE (FP) PO PRN (10:10)
[2019-01-04] MEDS: ACETAMINOPHEN 325 MG TABLET (FP) PO PRN (10:10)
[2019-01-04] MEDS: THIAMINE HCL 100 MG TABLET (FP) PO SCH (23:36)
[2019-01-05] MEDS ORDERED: METHADONE HCL 40 MG DISPERSABLE TABLET ONE (02:43)
[2019-01-05] MEDS ORDERED: METHADONE HCL 10 MG TABLET ONE (02:43)
[2019-01-05] MEDS: METHADONE 40 MG, METHADONE 20 MG PO SCH (07:55)
[2019-01-05] MEDS: risperiDONE 0.5 MG TABLET (FP) PO SCH ×2 (10:06→22:25)
[2019-01-05] MEDS: PRENATAL VITAMINS W/ FOLIC ACID TABLET (FP) PO SCH (10:06)
[2019-01-05] MEDS: ACETAMINOPHEN 325 MG TABLET (FP) PO PRN (10:07)
[2019-01-05] MEDS: hydrOXYzine PAMOATE 25 MG CAPSULE (FP) PO PRN (10:07)
[2019-01-05] MEDS: THIAMINE HCL 100 MG TABLET (FP) PO SCH (22:25)
[2019-01-06] MEDS ORDERED: METHADONE HCL 10 MG TABLET ONE (03:12)
[2019-01-06] MEDS ORDERED: METHADONE HCL 40 MG DISPERSABLE TABLET ONE (03:12)
[2019-01-06] MEDS: METHADONE 40 MG, METHADONE 20 MG PO SCH (08:03)
[2019-01-06] MEDS ORDERED: PT OWN MED DRAWER 7, Y5N ONE (08:08)
[2019-01-06] MEDS: PRENATAL VITAMINS W/ FOLIC ACID TABLET (FP) PO SCH (09:51)
[2019-01-06] MEDS: risperiDONE 0.5 MG TABLET (FP) PO SCH ×2 (09:51→23:08)
[2019-01-06] MEDS: ACETAMINOPHEN 325 MG TABLET (FP) PO PRN (09:52)
[2019-01-06] MEDS: THIAMINE HCL 100 MG TABLET (FP) PO SCH (23:08)
--- NOTE | 2019-01-07 06:36 | PN ---
[facility] Progress Note Note: Patient is scheduled for discharge today. Script for 30 days supply of Risperdal 0.5 mg po BID is electronically transmitted to [facility] at [address] [place], [place] [id number]
[2019-01-07 07:18] VITALS: BP 109/71; PULSE 71; TEMP 97.9
--- NOTE | 2019-01-07 08:40 | PN ---
[facility] Progress Note (SOAP) Subjective: patient for discharge today. Objective: Alert and oriented x 3, lungs clear, heart rate regular, abd soft, non-tender, non-distended, + BS 01/07/19 08:39 CBC, BMP 12/26/18 08:30 12/26/18 08:30 Vital Signs (72 hours) 01/05/19 01/06/19 01/06/19 03:30 00:30 03:30 Temperature Pulse Rate Respiratory 18 18 18 Rate Blood Pressure 01/06/19 01/07/19 01/07/19 06:56 00:30 03:30 Temperature 98.2 F Pulse Rate 75 Respiratory 18 18 18 Rate Blood Pressure 111/74 01/07/19 01/07/19 07:11 07:17 Temperature 97.9 F Pulse Rate 71 Respiratory 18 18 Rate Blood Pressure 109/71 01/07/19 10:31 Assessment: Medically stable for discharge Substance abuse disorder, chronic. 01/07/19 10:32 Plan: Aftercare at [facility]. Primary care at [facility] outpatient. No medications needed upon discharge.
[2019-01-07] MEDS: PRENATAL VITAMINS W/ FOLIC ACID TABLET (FP) PO SCH (09:19)
[2019-01-07] MEDS: risperiDONE 0.5 MG TABLET (FP) PO SCH (09:19)
[2019-01-07] MEDS ORDERED: METHADONE HCL 10 MG TABLET ONE (09:20)
[2019-01-07] MEDS ORDERED: METHADONE HCL 40 MG DISPERSABLE TABLET ONE (09:21)
[2019-01-07] MEDS ORDERED: METHADONE 40 MG, METHADONE 20 MG PO SCH (10:00)
== END 2019-01-07 09:25 | disposition home or self-care (01) | DRG 772 ==
LOC: YASAS 14:29 → Y3E 20:09
PROVIDERS: ADMIT Neuromusculoskeletal Medicine & OMM; ATTEND Neuromusculoskeletal Medicine & OMM
PROC: HZ42ZZZ Group Counseling for Substance Abuse Treatment, Cognitive-Behavioral (ICD-10-PCS; principal; 2018-12-25)
DX: F10.20 Alcohol dependence, uncomplicated (principal); F14.20 Cocaine dependence, uncomplicated; F11.20 Opioid dependence, uncomplicated; F19.24 Other psychoactive substance dependence with psychoactive substance-induced mood disorder; N89.8 Other specified noninflammatory disorders of vagina
CPT/HCPCS: 36415; 80053; 81003; 81025; 85027; 86593; 87086